=== PATIENT | male | born 1930 | race Two or more races ===

== ENCOUNTER → 2017-12-17 | Outpatient (CLI) | payer MEDICARE, MEDICAID | END | disposition home or self-care (01) | LOC: Rad HDHVI 14:53 | PROVIDERS: ATTEND Internal Medicine | DX: I35.8 Other nonrheumatic aortic valve disorders (principal); I35.1 Nonrheumatic aortic (valve) insufficiency; R00.2 Palpitations; R01.1 Cardiac murmur, unspecified | CPT/HCPCS: 93306 ==

== ENCOUNTER → 2017-12-19 | Outpatient (CLI) | payer MEDICARE, MEDICAID ==
[~2017-12-19] VITALS: Ht 154.9 cm; Wt 56.7 kg
[~2017-12-19] MED LIST: ADENOSINE 48 MG in GIVE UN-DILUTED 0 ML IV ONE; ADENOSINE 90 MG/30 ML INJ IV ONE; ASPI81TA27 PO; DOXA4TAB40 PO; METF-370 PO; METO25TA62 PO; PANT40TA2 PO
== END | disposition home or self-care (01) ==
LOC: Rad HDHVI 08:20
PROVIDERS: ATTEND Internal Medicine
DX: I10 Essential (primary) hypertension (principal); E11.9 Type 2 diabetes mellitus without complications; I35.0 Nonrheumatic aortic (valve) stenosis; R06.09 Other forms of dyspnea
CPT/HCPCS: 78452; 93005; 96374; 96375; A9500; J0153

== ENCOUNTER → 2017-12-22 | Outpatient (CLI) | payer MEDICARE, MEDICAID ==
[~2017-12-22] MED LIST changes: -ADENOSINE 48 MG in GIVE UN-DILUTED 0 ML IV ONE; -ADENOSINE 90 MG/30 ML INJ IV ONE
[2017-12-22 08:39] LABS: Urine Bacteria NONE SEEN /hpf (None Seen); Urine Blood Negative /uL (Negative); Urine Specific Gravity 1.013 (1.001-1.035); Urine WBC 2 /hpf (0 - 3)
[2017-12-22 08:43] LABS: Basophils # (auto) 0.2 uL; Eosinophils # (auto) 0.2 uL; Neutrophils # (auto) 1.8 uL
[2017-12-22 08:45] LABS: Basophils % (auto) 3.7 % (0.0-2.0); Hematocrit 40.5 % (41.0-53.0); Hemoglobin 13.6 g/dL (13.5-17.5); Lymphocytes # (auto) 2.5 uL; Lymphocytes % (auto) 48.9 % (10.0-50.0); Mean Corpuscular Hemoglobin 34.7 pg (28.0-32.0); Mean Corpuscular Hgb Conc. 33.4 g/dL (32.0-36.0); Mean Corpuscular Volume 103.8 fL (80.0-100.0); Monocytes # (auto) 0.5 uL; Monocytes % (auto) 9.6 % (0.0-12.0); Neutrophils % (auto) 34.8 % (37.0-80.0); Nucleated Red Blood Cells % 0.1 %; Platelet Count (auto) 140 10^3/uL (140-450); Red Blood Cells 3.91 10^6/uL (4.5-5.90); Red Cell Distribution Width 17.3 % (11.8-14.3); White Blood Cell 5.2 10^3/uL (4.4-10.8)
[2017-12-22 09:12] LABS: Albumin 3.3 g/dL (3.4-5.0); BUN/Creatinine Ratio 10.9; Bilirubin, Total 0.4 mg/dL (0.2-1.0); Calcium 8.8 mg/dL (8.5-10.1); Potassium 4.4 mmol/L (3.5-5.1); Total Protein 7.5 g/dL (6.4-8.2)
== END | disposition home or self-care (01) ==
LOC: LAB 07:08
PROVIDERS: ATTEND Nurse Practitioner
DX: E11.8 Type 2 diabetes mellitus with unspecified complications (principal); K21.9 Gastro-esophageal reflux disease without esophagitis; E55.9 Vitamin D deficiency, unspecified; R97.20 Elevated prostate specific antigen [PSA]
CPT/HCPCS: 36415; 80053; 80061; 81001; 82043; 82306; 83036; 84153; 84443; 85025

== ENCOUNTER 2018-01-07 19:40 | Emergency (ER) | payer MEDICARE, MEDICAID ==
[~2018-01-07] VITALS: Ht 162.6 cm; Wt 56.7 kg
[2018-01-07 20:02] VITALS: BP 152/64
[2018-01-07] MEDS ORDERED: TETANUS-DIPTH-ACEL PERTUSSIS 0.5ML SYRG IM ONE (23:00)
== END 2018-01-07 23:41 | disposition home or self-care (01) ==
LOC: ER 19:40
DX: S61.451A Open bite of right hand, initial encounter (principal); E11.9 Type 2 diabetes mellitus without complications; I10 Essential (primary) hypertension; Z79.84 Long term (current) use of oral hypoglycemic drugs; Z79.899 Other long term (current) drug therapy; Z79.82 Long term (current) use of aspirin; W54.0XXA Bitten by dog, initial encounter; Y93.89 Activity, other specified; Y99.8 Other external cause status; Y92.89 Other specified places as the place of occurrence of the external cause
CPT/HCPCS: 82962; 90471; 90715

== ENCOUNTER 2018-01-12 08:06 | Day surgery (SDC) | payer MEDICARE, MEDICAID ==
[2018-01-06 13:48] LABS: Basophils # (auto) 0.1 uL; Eosinophils # (auto) 0.2 uL; Hematocrit 40.1 % (41.0-53.0); Lymphocytes # (auto) 1.7 uL; Neutrophils # (auto) 2.2 uL; Neutrophils % (auto) 46.2 % (37.0-80.0); White Blood Cell 4.7 10^3/uL (4.4-10.8)
[2018-01-06 13:49] LABS: Basophils % (auto) 2.8 % (0.0-2.0); Eosinophils % (auto) 4.7 % (0.0-7.0); Hemoglobin 13.3 g/dL (13.5-17.5); Lymphocytes % (auto) 36.9 % (10.0-50.0); Mean Corpuscular Hemoglobin 35.2 pg (28.0-32.0); Mean Corpuscular Hgb Conc. 33.3 g/dL (32.0-36.0); Mean Corpuscular Volume 105.8 fL (80.0-100.0); Monocytes # (auto) 0.4 uL; Monocytes % (auto) 9.4 % (0.0-12.0); Nucleated Red Blood Cells % 0.4 %; Platelet Count (auto) 142 10^3/uL (140-450); Red Blood Cells 3.79 10^6/uL (4.5-5.90); Red Cell Distribution Width 16.1 % (11.8-14.3)
[2018-01-06 14:01] LABS: Partial Thromboplastin Time 30.3 sec (23.78-33.04); Prothrombin Time 10.7 sec (9.27-12.13)
[~2018-01-12] VITALS: Ht 165.1 cm; Wt 56.7 kg
[2018-01-12] MEDS ORDERED: SODIUM CHLORIDE LOCK 10 ML ONE (08:22)
[2018-01-12] MEDS ORDERED: fentaNYL CITRATE 100 MCG/2 ML VL ONE (08:22)
[2018-01-12] MEDS ORDERED: diphenhdrAMINE HCL 50 MG/1 ML VL ONE (08:22)
[2018-01-12] MEDS ORDERED: LIDOCAINE VISCOUS 2% 15ML UD ONE (08:22)
[2018-01-12] MEDS ORDERED: MIDAZOLAM HCL 5 MG/ML-1ML VIAL ONE (08:22)
[2018-01-12 10:20] VITALS: BP 150/64
== END 2018-01-12 10:30 | disposition home or self-care (01) ==
LOC: GI 08:06
PROVIDERS: ATTEND Internal Medicine Gastroenterology
DX: K22.2 Esophageal obstruction (principal); K44.9 Diaphragmatic hernia without obstruction or gangrene; K20.9 Esophagitis, unspecified; E11.9 Type 2 diabetes mellitus without complications; Z90.49 Acquired absence of other specified parts of digestive tract; Z79.82 Long term (current) use of aspirin; Z79.84 Long term (current) use of oral hypoglycemic drugs; Z79.899 Other long term (current) drug therapy
CPT/HCPCS: 36415; 43249; 82962; 85025; 85610; 85730; A6257; J2250; J3010; J7030; 43213

== ENCOUNTER → 2018-05-05 | Outpatient (CLI) | payer MEDICARE, MEDICAID ==
[2018-05-05 08:13] LABS: Basophils # (auto) 0.2 uL; Eosinophils # (auto) 0.2 uL
[2018-05-05 08:14] LABS: Basophils % (auto) 2.9 % (0.0-2.0); Eosinophils % (auto) 3.5 % (0.0-7.0); Hematocrit 37.2 % (41.0-53.0); Hemoglobin 12.9 g/dL (13.5-17.5); Lymphocytes # (auto) 2.7 uL; Lymphocytes % (auto) 48.7 % (10.0-50.0); Mean Corpuscular Hemoglobin 36.9 pg (28.0-32.0); Mean Corpuscular Hgb Conc. 34.8 g/dL (32.0-36.0); Mean Corpuscular Volume 105.9 fL (80.0-100.0); Monocytes # (auto) 0.4 uL; Monocytes % (auto) 7.4 % (0.0-12.0); Neutrophils % (auto) 37.5 % (37.0-80.0); Nucleated Red Blood Cells % 0.1 %; Platelet Count (auto) 164 10^3/uL (140-450); Red Blood Cells 3.51 10^6/uL (4.5-5.90); Red Cell Distribution Width 15.1 % (11.8-14.3); White Blood Cell 5.5 10^3/uL (4.4-10.8)
[2018-05-05 08:36] LABS: Chloride 105 mmol/L (98-107); Potassium 4.4 mmol/L (3.5-5.1); Sodium 139 mmol/L (136-145)
[2018-05-05 08:46] LABS: Alanine Aminotransferase 34 U/L (16-61); Albumin 3.3 g/dL (3.4-5.0); Alkaline Phosphatase 73 U/L (45-117); Anion Gap 5 (5-15); Aspartate Aminotransferase 34 U/L (15-37); BUN/Creatinine Ratio 12.8; Bilirubin, Total 0.4 mg/dL (0.2-1.0); Blood Urea Nitrogen 15 mg/dL (7-18); Calcium 8.8 mg/dL (8.5-10.1); Carbon Dioxide 29 mmol/L (21-32); Cholesterol 153 mg/dL (< 200); GFR African American > 60 mL/min; GFR Non-African American > 60 mL/min; Glucose 93 mg/dL (74-106); HDL Cholesterol 48 mg/dL (40-59); LDL Cholesterol 97 mg/dL (< 100); Total Protein 7.3 g/dL (6.4-8.2); Triglycerides 116 mg/dL (< 150)
== END | disposition home or self-care (01) ==
LOC: LAB 07:47
PROVIDERS: ATTEND Nurse Practitioner
DX: E11.8 Type 2 diabetes mellitus with unspecified complications (principal); I10 Essential (primary) hypertension; Z79.84 Long term (current) use of oral hypoglycemic drugs
CPT/HCPCS: 36415; 80053; 80061; 83036; 84443; 85025

== ENCOUNTER → 2018-05-14 | Outpatient (CLI) | payer MEDICARE, MEDICAID ==
[2018-05-14 12:14] LABS: Basophils # (auto) 0.1 uL; Eosinophils # (auto) 0.2 uL; Lymphocytes # (auto) 1.8 uL; Monocytes # (auto) 0.4 uL
[2018-05-14 12:17] LABS: Basophils % (auto) 1.7 % (0.0-2.0); Eosinophils % (auto) 4.4 % (0.0-7.0); Hematocrit 36.8 % (41.0-53.0); Hemoglobin 12.7 g/dL (13.5-17.5); Lymphocytes % (auto) 36.3 % (10.0-50.0); Mean Corpuscular Hemoglobin 37.8 pg (28.0-32.0); Mean Corpuscular Hgb Conc. 34.6 g/dL (32.0-36.0); Mean Corpuscular Volume 109.2 fL (80.0-100.0); Monocytes % (auto) 7.9 % (0.0-12.0); Neutrophils # (auto) 2.4 uL; Neutrophils % (auto) 49.7 % (37.0-80.0); Nucleated Red Blood Cells % 0.5 %; Platelet Count (auto) 130 10^3/uL (140-450); Red Blood Cells 3.37 10^6/uL (4.5-5.90); Red Cell Distribution Width 14.9 % (11.8-14.3); White Blood Cell 4.9 10^3/uL (4.4-10.8)
[2018-05-14 12:20] LABS: Urine Blood Negative /uL (Negative); Urine Specific Gravity 1.016 (1.001-1.035)
[2018-05-14 12:28] LABS: Albumin 3.3 g/dL (3.4-5.0); Calcium 8.7 mg/dL (8.5-10.1); Potassium 4.6 mmol/L (3.5-5.1)
[2018-05-14 12:33] LABS: BUN/Creatinine Ratio 12.3; Bilirubin, Total 0.5 mg/dL (0.2-1.0); Total Protein 7.3 g/dL (6.4-8.2)
[2018-05-14 12:36] LABS: Free T4 (Free Thyroxine) 0.72 ng/dL (0.89-1.76)
[2018-05-14 12:37] LABS: Prostate Specific Antigen 0.83 ng/mL (0.0-4.0)
== END | disposition home or self-care (01) ==
LOC: LAB 07:52
PROVIDERS: ATTEND Internal Medicine
DX: E55.9 Vitamin D deficiency, unspecified (principal); E03.9 Hypothyroidism, unspecified; C61 Malignant neoplasm of prostate; E29.1 Testicular hypofunction; E11.9 Type 2 diabetes mellitus without complications; D51.9 Vitamin B12 deficiency anemia, unspecified; N39.0 Urinary tract infection, site not specified
CPT/HCPCS: 36415; 80053; 80061; 81003; 82306; 82607; 83036; 84153; 84403; 84439; 84443; 85025; 87086

== ENCOUNTER → 2018-08-26 | Outpatient (CLI) | payer MEDICARE, MEDICAID ==
[2018-08-26 08:44] LABS: Basophils # (auto) 0.1 uL; Eosinophils # (auto) 0.2 uL; Lymphocytes # (auto) 1.9 uL; Monocytes # (auto) 0.6 uL; Red Cell Distribution Width 14.7 % (11.8-14.3)
[2018-08-26 08:46] LABS: Basophils % (auto) 1.7 % (0.0-2.0); Eosinophils % (auto) 2.4 % (0.0-7.0); Hematocrit 41.9 % (41.0-53.0); Hemoglobin 14.2 g/dL (13.5-17.5); Lymphocytes % (auto) 28.4 % (10.0-50.0); Mean Corpuscular Volume 105.9 fL (80.0-100.0); Neutrophils % (auto) 58.5 % (37.0-80.0); Platelet Count (auto) 144 10^3/uL (140-450); Red Blood Cells 3.96 10^6/uL (4.5-5.90); White Blood Cell 6.8 10^3/uL (4.4-10.8)
[2018-08-26 08:50] LABS: Urine Bacteria NONE SEEN /hpf (None Seen); Urine Blood Negative /uL (Negative); Urine Specific Gravity 1.014 (1.001-1.035); Urine WBC 2 /hpf (0 - 3)
[2018-08-26 09:03] LABS: Albumin 3.5 g/dL (3.4-5.0); Calcium 9.2 mg/dL (8.5-10.1); Potassium 4.6 mmol/L (3.5-5.1)
[2018-08-26 09:07] LABS: BUN/Creatinine Ratio 12.5; Bilirubin, Total 0.6 mg/dL (0.2-1.0); Total Protein 7.6 g/dL (6.4-8.2)
[2018-08-26 09:16] LABS: Folate (Folic Acid) 22.64 ng/mL (5.38-24)
== END | disposition home or self-care (01) ==
LOC: LAB 07:54
PROVIDERS: ATTEND Nurse Practitioner
DX: E78.5 Hyperlipidemia, unspecified (principal); E53.8 Deficiency of other specified B group vitamins
CPT/HCPCS: 36415; 80053; 80061; 81001; 82607; 82746; 84443; 85025

== ENCOUNTER → 2018-09-02 | Outpatient (CLI) | payer MEDICARE, MEDICAID | END | disposition home or self-care (01) | LOC: LAB 07:58 | PROVIDERS: ATTEND Internal Medicine | DX: E03.9 Hypothyroidism, unspecified (principal) | CPT/HCPCS: 36415; 84443 ==

== ENCOUNTER → 2018-10-08 | Outpatient (CLI) | payer MEDICARE, MEDICAID | END | disposition home or self-care (01) | LOC: LAB 07:11 | PROVIDERS: ATTEND Nurse Practitioner | DX: E03.9 Hypothyroidism, unspecified (principal) | CPT/HCPCS: 36415; 84443 ==

== ENCOUNTER → 2019-02-08 | Outpatient (CLI) | payer MEDICARE, MEDICAID ==
[~2019-02-08] MED LIST changes: +ASPI-404 PO; -ASPI81TA27 PO; -DOXA4TAB40 PO; +DOXA4TAB5 PO
[2019-02-08 09:10] LABS: Hematocrit 42.4 % (41.0-53.0); Hemoglobin 14.3 g/dL (13.5-17.5); Lymphocytes # (auto) 2.2 uL; Monocytes # (auto) 0.4 uL; Neutrophils # (auto) 1.9 uL
[2019-02-08 09:12] LABS: Basophils # (auto) 0.2 uL; Basophils % (auto) 4.3 % (0.0-2.0); Eosinophils # (auto) 0.3 uL; Eosinophils % (auto) 5.6 % (0.0-7.0); Lymphocytes % (auto) 44.1 % (10.0-50.0); Mean Corpuscular Hemoglobin 36.1 pg (28.0-32.0); Mean Corpuscular Hgb Conc. 33.8 g/dL (32.0-36.0); Nucleated Red Blood Cells % 0.3 %; Platelet Count (auto) 129 10^3/uL (140-450); Red Blood Cells 3.96 10^6/uL (4.5-5.90); Red Cell Distribution Width 15.2 % (11.8-14.3)
[2019-02-08 09:17] LABS: Urine Bacteria NONE SEEN /hpf (None Seen); Urine Blood Negative /uL (Negative); Urine Specific Gravity 1.016 (1.001-1.035); Urine WBC 12 /hpf (0 - 3)
[2019-02-08 09:24] LABS: Albumin 3.6 g/dL (3.4-5.0); Calcium 8.9 mg/dL (8.5-10.1); Potassium 4.4 mmol/L (3.5-5.1)
[2019-02-08 09:30] LABS: BUN/Creatinine Ratio 14.3; Bilirubin, Total 0.6 mg/dL (0.2-1.0); Total Protein 7.6 g/dL (6.4-8.2)
== END | disposition home or self-care (01) ==
LOC: LAB 07:55
PROVIDERS: ATTEND Nurse Practitioner
DX: E78.5 Hyperlipidemia, unspecified (principal); E03.9 Hypothyroidism, unspecified
CPT/HCPCS: 36415; 80053; 80061; 81001; 84443; 85025

== ENCOUNTER → 2020-03-17 | Outpatient (CLI) | payer MEDICARE, MEDICAID ==
[~2020-03-17] MED LIST changes: -ASPI-404 PO; +ASPI-543 PO; -METO25TA62 PO; +METO25TA93 PO
[2020-03-17 08:07] LABS: Basophils # (auto) 0.2 10 ^3/uL (0-0.2); Eosinophils # (auto) 0.3 10 ^3/uL (0-0.8); Hemoglobin 14.6 g/dL (13.5-17.5)
[2020-03-17 08:09] LABS: Basophils % (auto) 4.7 % (0.0-2.0); Eosinophils % (auto) 6.5 % (0.0-7.0); Hematocrit 43.8 % (41.0-53.0); Lymphocytes # (auto) 1.6 10 ^3/uL (0.4-5.4); Lymphocytes % (auto) 35.3 % (10.0-50.0); Mean Corpuscular Hemoglobin 35.2 pg (28.0-32.0); Mean Corpuscular Hgb Conc. 33.4 g/dL (32.0-36.0); Mean Corpuscular Volume 105.4 fL (80.0-100.0); Monocytes # (auto) 0.4 10 ^3/uL (0-1.3); Monocytes % (auto) 9.8 % (0.0-12.0); Neutrophils % (auto) 43.7 % (37.0-80.0); Nucleated Red Blood Cells % 0.5 %; Platelet Count (auto) 60 10^3/uL (140-450); Red Blood Cells 4.16 10^6/uL (4.5-5.90); Red Cell Distribution Width 15.2 % (11.8-14.3); White Blood Cell 4.5 10^3/uL (4.4-10.8)
[2020-03-17 08:33] LABS: Potassium 4.1 mmol/L (3.5-5.1)
[2020-03-17 08:49] LABS: Albumin 3.4 g/dL (3.4-5.0); BUN/Creatinine Ratio 15.2; Bilirubin, Total 0.7 mg/dL (0.2-1.0); Total Protein 7.7 g/dL (6.4-8.2)
== END | disposition home or self-care (01) ==
LOC: LAB 07:27
PROVIDERS: ATTEND Student in an Organized Health Care Education/Training Program
DX: E11.9 Type 2 diabetes mellitus without complications (principal); I10 Essential (primary) hypertension; E03.9 Hypothyroidism, unspecified
CPT/HCPCS: 36415; 80053; 80061; 82043; 83036; 84443; 85025

== ENCOUNTER → 2020-06-14 | Outpatient (CLI) | payer MEDICARE, MEDICAID | END | disposition home or self-care (01) | LOC: LAB 10:29 | PROVIDERS: ATTEND Internal Medicine Pulmonary Disease | DX: Z01.812 Encounter for preprocedural laboratory examination (principal); Z20.822 Contact with and (suspected) exposure to COVID-19; J84.9 Interstitial pulmonary disease, unspecified | CPT/HCPCS: 36415; 87426 ==

== ENCOUNTER → 2020-06-15 | Outpatient (CLI) | payer MEDICARE, MEDICAID ==
[~2020-06-15] MED LIST changes: +ALBUTEROL SULF 2.5 MG/0.5ML(0.5%) NEB SOLN ONE
== END | disposition home or self-care (01) ==
LOC: RT 08:32
PROVIDERS: ATTEND Internal Medicine Pulmonary Disease
DX: J84.9 Interstitial pulmonary disease, unspecified (principal); J98.4 Other disorders of lung
CPT/HCPCS: 94060; 94618; 94727; 94729

== ENCOUNTER 2021-06-11 09:09 | Inpatient (IN) | payer MEDICARE, MEDICAID ==
[~2021-06-11] VITALS: Ht 157.5 cm; Wt 53.3 kg
[~2021-06-11 09:09] MED LIST changes: -ALBUTEROL SULF 2.5 MG/0.5ML(0.5%) NEB SOLN ONE; -DOXA4TAB5 PO; +DOXA4TAB6 PO
[2021-06-11 10:00] LABS: Monocytes # (auto) 0.3 10 ^3/uL (0-1.3); Red Blood Cells 3.76 10^6/uL (4.5-5.90); Red Cell Distribution Width 15.1 % (11.8-14.3)
[2021-06-11 10:02] LABS: Basophils # (auto) 0.2 10 ^3/uL (0-0.2); Eosinophils # (auto) 0.1 10 ^3/uL (0-0.8); Eosinophils % (auto) 3.5 % (0.0-7.0); Hematocrit 40.6 % (41.0-53.0); Hemoglobin 14.1 g/dL (13.5-17.5); Lymphocytes # (auto) 0.5 10 ^3/uL (0.4-5.4); Lymphocytes % (auto) 11.5 % (10.0-50.0); Mean Corpuscular Hemoglobin 37.4 pg (28.0-32.0); Mean Corpuscular Hgb Conc. 34.6 g/dL (32.0-36.0); Monocytes % (auto) 8.1 % (0.0-12.0); Neutrophils # (auto) 3.1 10 ^3/uL (1.6-8.6); Neutrophils % (auto) 72.9 % (37.0-80.0); Nucleated Red Blood Cells % 0.7 %; White Blood Cell 4.2 10^3/uL (4.4-10.8)
[2021-06-11 10:20] LABS: Albumin 3.1 g/dL (3.4-5.0); Calcium 9.2 mg/dL (8.5-10.1); Potassium 4.8 mmol/L (3.5-5.1)
[2021-06-11 10:25] LABS: Total Protein 7.6 g/dL (6.4-8.2)
[2021-06-11] MEDS ORDERED: FUROSEMIDE 40 MG/4 ML VIAL IV ONE (11:00)
[2021-06-11] MEDS ORDERED: NITROGLYCERIN 0.4 MG SL TAB SL PRN (13:30)
[2021-06-11] MEDS ORDERED: MORPHINE SULFATE INJECTION 2 MG/ML SYRG IV PRN ×2 (13:30→19:45)
[2021-06-11 15:30] VITALS: BP 134/58
[2021-06-11 16:38] LABS: Urine Bacteria FEW /hpf (None Seen); Urine Blood TRACE /uL (Negative); Urine Hyaline Cast FEW /lpf (0 - 2); Urine Specific Gravity 1.009 (1.001-1.035); Urine WBC 2 /hpf (0 - 3)
[2021-06-11 17:15] VITALS: BP 136/82
[2021-06-11] MEDS ORDERED: PANT40TA2 PO (17:30)
[2021-06-11] MEDS ORDERED: LEVO75TA6 PO (17:30)
[2021-06-11] MEDS ORDERED: ALBUAER3 IN (17:42)
[2021-06-11] MEDS ORDERED: levoFLOXacin 500MG 100 ML IV ONE (19:45)
[2021-06-11] MEDS ORDERED: BENAZEPRIL HCL 10 MG TAB PO ONE (19:45)
[2021-06-11] MEDS ORDERED: MONTELUKAST SODIUM 10 MG TAB PO ONE (19:45)
[2021-06-11] MEDS ORDERED: IPRATROPIUM BROM 0.5 MG/2.5ML INH SOL NEB ONE (19:45)
[2021-06-11] MEDS ORDERED: HYDROcodone-ACET 5/325MG TAB PO PRN (19:45)
[2021-06-11] MEDS ORDERED: PANTOPRAZOLE 40 MG/10 ML VIAL INJ IV ONE (19:45)
[2021-06-11] MEDS ORDERED: DOCUSATE SOD 100 MG CAP PO PRN (19:45)
[2021-06-11] MEDS ORDERED: METOPROLOL SUCCINATE XL 50 MG TAB PO ONE (19:45)
[2021-06-11] MEDS ORDERED: LACTULOSE 20Gm/30ML SOLN PO PRN (19:45)
[2021-06-11] MEDS ORDERED: HYDROcodone-ACET 5/325MG TAB PO ONE (19:45)
[2021-06-11] MEDS ORDERED: LORazepam 0.5 MG TAB PO PRN (19:45)
[2021-06-11] MEDS ORDERED: hydrALAZINE HCL 20 MG/ML VL IV PRN (19:45)
[2021-06-11] MEDS ORDERED: ALBUTEROL SULF 2.5 MG/0.5ML(0.5%) NEB SOLN NEB ONE (19:45)
[2021-06-11] MEDS ORDERED: ONDANSETRON HCL 4 MG/2 ML VIAL IV PRN (19:45)
[2021-06-11] MEDS ORDERED: BUDESONIDE (INHALATION) 0.5 MG/2 ML NEB NEB ONE (19:45)
[2021-06-11] MEDS ORDERED: MULTIPLE VITAMINS W/ MINERALS TAB PO ONE (19:45)
[2021-06-11] MEDS: ACETYLCYSTEINE 10 %(100MG/ML) SOL 4ML NEB SCH (20:25)
[2021-06-11 21:22] VITALS: BP 136/82
[2021-06-11 21:51] LABS: Magnesium 2.2 mg/dL (1.6-2.6); Phosphorus 2.9 mg/dL (2.5-4.90)
[2021-06-11 22:00] VITALS: BP 144/79
[2021-06-11] MEDS: SODIUM CHLORIDE 0.9% 1,000 ML IV SCH (22:01)
[2021-06-11] MEDS: methylPREDNISolone SOD SUCC 40 MG/ML VL IV SCH (22:34)
[2021-06-11] MEDS: MONTELUKAST SODIUM 10 MG TAB PO SCH (22:34)
[2021-06-11] MEDS: ATORVASTATIN 20 MG TAB PO SCH (22:34)
[2021-06-11] MEDS: ALBUTEROL SULF 2.5 MG/0.5ML(0.5%) NEB SOLN NEB PRN (22:56)
[2021-06-11] MEDS: IPRATROPIUM BROM 0.5 MG/2.5ML INH SOL NEB SCH (22:56)
[2021-06-12] MEDS: IPRATROPIUM BROM 0.5 MG/2.5ML INH SOL NEB SCH ×7 (02:00→22:17)
[2021-06-12] MEDS: ALBUTEROL SULF 2.5 MG/0.5ML(0.5%) NEB SOLN NEB PRN ×5 (02:36→18:18)
[2021-06-12 05:00] VITALS: BP 104/50
[2021-06-12] MEDS: BUDESONIDE (INHALATION) 0.5 MG/2 ML NEB NEB SCH ×2 (06:09→18:18)
[2021-06-12] MEDS: ACETYLCYSTEINE 10 %(100MG/ML) SOL 4ML NEB SCH ×4 (06:10→18:17)
[2021-06-12] MEDS: FUROSEMIDE 20 MG/2 ML VIAL IV SCH ×2 (06:28→18:03)
[2021-06-12] MEDS: methylPREDNISolone SOD SUCC 40 MG/ML VL IV SCH ×3 (06:28→22:02)
[2021-06-12] MEDS: LEVOTHYROXINE SODIUM 25 MCG TAB PO SCH (06:47)
[2021-06-12 06:49] LABS: Albumin 2.7 g/dL (3.4-5.0); BUN/Creatinine Ratio 23.7; Calcium 8.7 mg/dL (8.5-10.1); Magnesium 2.3 mg/dL (1.6-2.6); Phosphorus 3.7 mg/dL (2.5-4.90); Potassium 4.8 mmol/L (3.5-5.1)
[2021-06-12 06:58] LABS: INR 1.19 (0.9-1.15); Partial Thromboplastin Time 33.4 sec (23.6-33.0)
[2021-06-12 06:59] LABS: Bilirubin, Total 0.8 mg/dL (0.2-1.0); Total Protein 7.1 g/dL (6.4-8.2)
[2021-06-12 07:05] LABS: White Blood Cell 3.7 10^3/uL (4.4-10.8)
[2021-06-12 07:10] LABS: Hemoglobin 13.5 g/dL (13.5-17.5); Mean Corpuscular Hemoglobin 38.1 pg (28.0-32.0); Mean Corpuscular Hgb Conc. 34.7 g/dL (32.0-36.0); Mean Corpuscular Volume 109.8 fL (80.0-100.0); Red Blood Cells 3.55 10^6/uL (4.5-5.90)
[2021-06-12 07:23] LABS: Basophils % (manual) 0 (0.0-2.0); Blast Cells 0; Eosinophils % (manual) 0 (0-7); Metamyelocytes % 0; Myelocytes % 0; Promyelocytes % 0
[2021-06-12 08:45] VITALS: BP 142/68
[2021-06-12 09:17] LABS: Band Neutrophils % (manual) 2; Lymphocytes % (manual) 8 (10.0-50.0); Monocytes % (manual) 1 (0-12); Reactive Lymphocytes 1
[2021-06-12] MEDS: levoFLOXacin 250MG 50 ML IV SCH (09:43)
[2021-06-12] MEDS: PANTOPRAZOLE 40 MG/10 ML VIAL INJ IV SCH (09:43)
[2021-06-12] MEDS: BENAZEPRIL HCL 10 MG TAB PO SCH (09:43)
[2021-06-12] MEDS: MULTIPLE VITAMINS W/ MINERALS TAB PO SCH (09:43)
[2021-06-12] MEDS ORDERED: ENOXAPARIN SOD 40 MG/0.4 ML SYRINGE SC SCH (10:00)
[2021-06-12] MEDS ORDERED: METOPROLOL SUCCINATE XL 50 MG TAB PO SCH (10:00)
[2021-06-12 12:00] VITALS: BP 135/65
[2021-06-12] MEDS ORDERED: IOHEXOL 350 MG/ML 100ML IJ ONE (12:14)
[2021-06-12] MEDS: SODIUM CHLORIDE 0.9% 1,000 ML IV SCH (12:25)
[2021-06-12 21:42] VITALS: BP 131/71
[2021-06-12] MEDS: MONTELUKAST SODIUM 10 MG TAB PO SCH (22:02)
[2021-06-12] MEDS: ATORVASTATIN 20 MG TAB PO SCH (22:02)
[2021-06-12] MEDS: METOPROLOL TARTRATE 25 MG TAB PO SCH (22:02)
[2021-06-13] MEDS: IPRATROPIUM BROM 0.5 MG/2.5ML INH SOL NEB SCH ×6 (02:03→22:23)
[2021-06-13 05:00] VITALS: BP 125/56
[2021-06-13] MEDS: SODIUM CHLORIDE 0.9% 1,000 ML IV SCH ×2 (05:05→21:45)
[2021-06-13 06:05] LABS: Cholesterol 147 mg/dL (< 200); HDL Cholesterol 58 mg/dL (40-59); Triglycerides 47 mg/dL (< 150)
[2021-06-13] MEDS: methylPREDNISolone SOD SUCC 40 MG/ML VL IV SCH ×3 (06:09→22:05)
[2021-06-13] MEDS: FUROSEMIDE 20 MG/2 ML VIAL IV SCH ×2 (06:09→17:49)
[2021-06-13] MEDS: ALBUTEROL SULF 2.5 MG/0.5ML(0.5%) NEB SOLN NEB PRN ×3 (06:31→22:23)
[2021-06-13] MEDS: ACETYLCYSTEINE 10 %(100MG/ML) SOL 4ML NEB SCH ×2 (06:31→19:29)
[2021-06-13] MEDS: BUDESONIDE (INHALATION) 0.5 MG/2 ML NEB NEB SCH ×2 (06:31→22:23)
[2021-06-13] MEDS: LEVOTHYROXINE SODIUM 25 MCG TAB PO SCH (06:45)
[2021-06-13 08:40] LABS: Alcohol, Urine < 3.0 mg/dL (0-10); Amphetamine Screen, Urine NEGATIVE (NEGATIVE); Barbiturate Scree,Urine NEGATIVE (NEGATIVE); Benzodiazephine Screen, Urine NEGATIVE (NEGATIVE); Cannabinoid Screen, Urine NEGATIVE (NEGATIVE); Cocaine Screen, Urine NEGATIVE (NEGATIVE); Opiate Scree,Urine NEGATIVE (NEGATIVE); Phencyclidine Screen, Urine NEGATIVE (NEGATIVE)
[2021-06-13 09:00] VITALS: BP 119/62
[2021-06-13] MEDS: PANTOPRAZOLE 40 MG/10 ML VIAL INJ IV SCH (09:09)
[2021-06-13] MEDS: MULTIPLE VITAMINS W/ MINERALS TAB PO SCH (09:09)
[2021-06-13] MEDS: BENAZEPRIL HCL 10 MG TAB PO SCH (09:09)
[2021-06-13] MEDS: METOPROLOL TARTRATE 25 MG TAB PO SCH ×2 (09:09→22:04)
[2021-06-13] MEDS: levoFLOXacin 250MG 50 ML IV SCH (09:10)
[2021-06-13] MEDS ORDERED: DICL1GEL50 TOP (09:49)
[2021-06-13] MEDS ORDERED: METO25TA5 PO (09:49)
[2021-06-13] MEDS ORDERED: ALBUAER3 IN (09:49)
[2021-06-13] MEDS ORDERED: LEVO75TA6 PO (09:49)
[2021-06-13] MEDS ORDERED: PANT40TA2 PO (09:49)
[2021-06-13 11:05] LABS: Red Cell Distribution Width 15.2 % (11.8-14.3)
[2021-06-13 11:07] LABS: Hematocrit 36.4 % (41.0-53.0); Hemoglobin 12.3 g/dL (13.5-17.5); Mean Corpuscular Hgb Conc. 33.9 g/dL (32.0-36.0); Mean Corpuscular Volume 109.4 fL (80.0-100.0); Red Blood Cells 3.32 10^6/uL (4.5-5.90); White Blood Cell 8.5 10^3/uL (4.4-10.8)
[2021-06-13 13:00] VITALS: BP 134/65
[2021-06-13 13:22] LABS: Basophils % (manual) 0 (0.0-2.0); Blast Cells 0; Eosinophils % (manual) 0 (0-7); Metamyelocytes % 0; Myelocytes % 0; Promyelocytes % 0; Reactive Lymphocytes 0
[2021-06-13 13:28] LABS: Band Neutrophils % (manual) 4; Lymphocytes % (manual) 6 (10.0-50.0); Monocytes % (manual) 6 (0-12)
[2021-06-13 17:00] VITALS: BP 143/72
[2021-06-13 22:00] VITALS: BP 118/61
[2021-06-13] MEDS: ATORVASTATIN 20 MG TAB PO SCH (22:03)
[2021-06-13] MEDS: MONTELUKAST SODIUM 10 MG TAB PO SCH (22:04)
[2021-06-14] MEDS: IPRATROPIUM BROM 0.5 MG/2.5ML INH SOL NEB SCH ×6 (01:47→22:30)
[2021-06-14] MEDS: ALBUTEROL SULF 2.5 MG/0.5ML(0.5%) NEB SOLN NEB PRN ×6 (01:48→22:30)
[2021-06-14 05:00] VITALS: BP 142/67
[2021-06-14] MEDS: FUROSEMIDE 20 MG/2 ML VIAL IV SCH ×2 (06:04→19:04)
[2021-06-14] MEDS: methylPREDNISolone SOD SUCC 40 MG/ML VL IV SCH ×3 (06:05→20:59)
[2021-06-14] MEDS: BUDESONIDE (INHALATION) 0.5 MG/2 ML NEB NEB SCH ×2 (06:40→19:24)
[2021-06-14 09:00] VITALS: BP 131/74
[2021-06-14] MEDS: PANTOPRAZOLE 40 MG/10 ML VIAL INJ IV SCH (10:51)
[2021-06-14] MEDS: METOPROLOL TARTRATE 25 MG TAB PO SCH ×2 (10:52→21:03)
[2021-06-14] MEDS: MULTIPLE VITAMINS W/ MINERALS TAB PO SCH (10:52)
[2021-06-14] MEDS: APIXABAN 5 MG TAB PO SCH ×2 (10:52→20:59)
[2021-06-14] MEDS: levoFLOXacin 250MG 50 ML IV SCH (10:56)
[2021-06-14] MEDS: BENAZEPRIL HCL 10 MG TAB PO SCH (12:17)
[2021-06-14 12:48] VITALS: BP 126/84
[2021-06-14] MEDS: SODIUM CHLORIDE 0.9% 1,000 ML IV SCH (15:03)
[2021-06-14 16:44] VITALS: BP 131/64
[2021-06-14] MEDS: ATORVASTATIN 20 MG TAB PO SCH (21:00)
[2021-06-14] MEDS: MONTELUKAST SODIUM 10 MG TAB PO SCH (21:01)
[2021-06-14 22:00] VITALS: BP 114/75
[2021-06-15] MEDS: IPRATROPIUM BROM 0.5 MG/2.5ML INH SOL NEB SCH ×4 (02:04→14:26)
[2021-06-15] MEDS: ALBUTEROL SULF 2.5 MG/0.5ML(0.5%) NEB SOLN NEB PRN (02:04)
[2021-06-15 02:55] VITALS: BP 114/75
[2021-06-15 05:00] VITALS: BP 111/55
[2021-06-15] MEDS: SODIUM CHLORIDE 0.9% 1,000 ML IV SCH (06:16)
[2021-06-15] MEDS: FUROSEMIDE 20 MG/2 ML VIAL IV SCH (06:18)
[2021-06-15] MEDS: methylPREDNISolone SOD SUCC 40 MG/ML VL IV SCH ×2 (06:18→14:00)
[2021-06-15] MEDS: BUDESONIDE (INHALATION) 0.5 MG/2 ML NEB NEB SCH (06:29)
[2021-06-15 08:39] LABS: LDL Cholesterol 88 mg/dL (< 100)
[2021-06-15 08:58] VITALS: BP 135/60
[2021-06-15] MEDS: PANTOPRAZOLE 40 MG/10 ML VIAL INJ IV SCH (09:13)
[2021-06-15] MEDS: levoFLOXacin 250MG 50 ML IV SCH (09:13)
[2021-06-15] MEDS: APIXABAN 5 MG TAB PO SCH (09:13)
[2021-06-15] MEDS: METOPROLOL TARTRATE 25 MG TAB PO SCH (09:14)
[2021-06-15] MEDS: BENAZEPRIL HCL 10 MG TAB PO SCH (09:15)
[2021-06-15] MEDS: MULTIPLE VITAMINS W/ MINERALS TAB PO SCH (09:15)
[2021-06-15] MEDS ORDERED: APIX5TAB PO (09:20)
[2021-06-15] MEDS ORDERED: LEVO500T31 PO (09:20)
[2021-06-15] MEDS ORDERED: PRED20TA2 PO (09:30)
[2021-06-15] MEDS ORDERED: FURO1TAB33 PO (09:31)
[2021-06-15 11:33] VITALS: BP 135/60
[2021-06-15 12:57] VITALS: BP 124/62
[2021-06-21] MEDS ORDERED: APIXABAN 5 MG TAB PO SCH (10:00)
== END 2021-06-15 16:16 | disposition home or self-care (01) | DRG 142 ==
LOC: EDBD 09:09 → ER 09:09 → TELE 13:22 → TELE-CENTR 15:00
PROVIDERS: ADMIT Hospitalist; ATTEND Family Medicine
DX: J84.9 Interstitial pulmonary disease, unspecified (principal); I26.99 Other pulmonary embolism without acute cor pulmonale; J96.21 Acute and chronic respiratory failure with hypoxia; I50.43 Acute on chronic combined systolic (congestive) and diastolic (congestive) heart failure; D69.6 Thrombocytopenia, unspecified; J44.0 Chronic obstructive pulmonary disease with (acute) lower respiratory infection; R64 Cachexia; I13.0 Hypertensive heart and chronic kidney disease with heart failure and stage 1 through stage 4 chronic kidney disease, or unspecified chronic kidney disease; J84.112 Idiopathic pulmonary fibrosis; I35.0 Nonrheumatic aortic (valve) stenosis; J44.1 Chronic obstructive pulmonary disease with (acute) exacerbation; N39.0 Urinary tract infection, site not specified; R62.7 Adult failure to thrive; E03.9 Hypothyroidism, unspecified; E05.80 Other thyrotoxicosis without thyrotoxic crisis or storm; E11.22 Type 2 diabetes mellitus with diabetic chronic kidney disease; E11.40 Type 2 diabetes mellitus with diabetic neuropathy, unspecified; E78.5 Hyperlipidemia, unspecified; N18.9 Chronic kidney disease, unspecified; Z20.822 Contact with and (suspected) exposure to COVID-19; R00.0 Tachycardia, unspecified; R79.89 Other specified abnormal findings of blood chemistry; R94.6 Abnormal results of thyroid function studies; Z99.81 Dependence on supplemental oxygen; Z79.899 Other long term (current) drug therapy
CPT/HCPCS: 36415; 71045; 71275; 80053; 80061; 80307; 81001; 82728; 83036; 83735; 83880; 84100; 84443; 84484; 85007; 85025; 85027; 85379; 85610; 85730; 87040; 87086; 87088; 87186; 87426; 93005; 93306; 93970; 94640; 96365; 96375; 99291; C9113; G0378; J1956

== ENCOUNTER 2021-06-17 05:49 | Inpatient (IN) | payer MEDICARE, MEDICAID ==
[~2021-06-17] VITALS: Ht 152.4 cm; Wt 52.2 kg
[~2021-06-17 05:49] MED LIST changes: +ALBUAER3 IN; +APIX5TAB PO; -ASPI-543 PO; +DICL1GEL50 TOP; -DOXA4TAB6 PO; +FURO1TAB33 PO; +LEVO500T31 PO; +LEVO75TA6 PO; -METF-370 PO; +METO25TA5 PO; -METO25TA93 PO; +PRED20TA2 PO
[2021-06-17 06:44] LABS: White Blood Cell 8.7 10^3/uL (4.4-10.8)
[2021-06-17 06:47] LABS: Hematocrit 41.7 % (41.0-53.0); Hemoglobin 14.4 g/dL (13.5-17.5); Mean Corpuscular Hemoglobin 37.4 pg (28.0-32.0); Mean Corpuscular Hgb Conc. 34.6 g/dL (32.0-36.0); Mean Corpuscular Volume 108.1 fL (80.0-100.0); Red Blood Cells 3.86 10^6/uL (4.5-5.90); Red Cell Distribution Width 14.7 % (11.8-14.3)
[2021-06-17 06:53] LABS: Basophils % (manual) 0 (0.0-2.0); Blast Cells 0; Metamyelocytes % 0; Myelocytes % 0; Promyelocytes % 0; Reactive Lymphocytes 0
[2021-06-17 06:58] LABS: INR 1.17 (0.9-1.15); Partial Thromboplastin Time 30.5 sec (23.6-33.0)
[2021-06-17 07:03] LABS: Chloride 101 mmol/L (98-107); Potassium 4.1 mmol/L (3.5-5.1); Sodium 136 mmol/L (136-145)
[2021-06-17 07:11] LABS: Alanine Aminotransferase 30 U/L (16-61); Albumin 2.9 g/dL (3.4-5.0); Alkaline Phosphatase 73 U/L (45-117); Anion Gap 2 (5-15); Aspartate Aminotransferase 33 U/L (15-37); BUN/Creatinine Ratio 44.7; Bilirubin, Total 1.1 mg/dL (0.2-1.0); Blood Alcohol < 3.0 mg/dL (0-5); Blood Urea Nitrogen 46 mg/dL (7-18); Calcium 8.6 mg/dL (8.5-10.1); Carbon Dioxide 33 mmol/L (21-32); GFR African American 88 mL/min; GFR Non-African American 72 mL/min; Glucose 102 mg/dL (74-106); Magnesium 2.9 mg/dL (1.6-2.6); Total Protein 6.6 g/dL (6.4-8.2)
[2021-06-17 08:44] LABS: Alcohol, Urine < 3.0 mg/dL (0-10); Amphetamine Screen, Urine NEGATIVE (NEGATIVE); Barbiturate Scree,Urine NEGATIVE (NEGATIVE); Benzodiazephine Screen, Urine NEGATIVE (NEGATIVE); Cannabinoid Screen, Urine NEGATIVE (NEGATIVE); Cocaine Screen, Urine NEGATIVE (NEGATIVE); Opiate Scree,Urine NEGATIVE (NEGATIVE); Phencyclidine Screen, Urine NEGATIVE (NEGATIVE)
[2021-06-17 09:23] LABS: Urine Bacteria NONE SEEN /hpf (None Seen); Urine Blood 1+ /uL (Negative); Urine Specific Gravity 1.018 (1.001-1.035); Urine WBC 1 /hpf (0 - 3)
[2021-06-17 12:34] LABS: Band Neutrophils % (manual) 1; Eosinophils % (manual) 6 (0-7); Lymphocytes % (manual) 15 (10.0-50.0); Monocytes % (manual) 6 (0-12)
[2021-06-17] MEDS ORDERED: NITROGLYCERIN 0.4 MG SL TAB SL PRN (13:30)
[2021-06-17] MEDS ORDERED: MORPHINE SULFATE INJECTION 2 MG/ML SYRG IV PRN (13:30)
[2021-06-17] MEDS ORDERED: HYDROcodone-ACET 5/325MG TAB PO PRN (14:15)
[2021-06-17] MEDS ORDERED: ONDANSETRON HCL 4 MG/2 ML VIAL IV PRN (14:15)
[2021-06-17] MEDS ORDERED: ENOXAPARIN SOD 60 MG/0.6 ML SYRINGE SC SCH (14:15)
[2021-06-17] MEDS ORDERED: METOPROLOL TARTRATE 1MG/1ML-5ML VIAL IV PRN (14:15)
[2021-06-17] MEDS ORDERED: MORPHINE SULFATE 4 MG/ML SYR/VIAL IV PRN (14:15)
[2021-06-17] MEDS ORDERED: ACETAMINOPHEN 325 MG TAB PO PRN (14:15)
[2021-06-17] MEDS: metroNIDAZOLE 500 MG TAB PO SCH ×2 (14:44→21:12)
[2021-06-17] MEDS ORDERED: ENOXAPARIN SOD 60 MG/0.6 ML SYRINGE SC ONE ×2 (15:00)
[2021-06-17 15:10] VITALS: BP 116/71
[2021-06-17] MEDS: CEFEPIME 2 GM in SODIUM CHL 0.9% 50 ML IV SCH (15:48)
[2021-06-17] MEDS ORDERED: IPRATROPIUM BROM 0.5 MG/2.5ML INH SOL NEB PRN (16:00)
[2021-06-17 16:32] VITALS: BP 116/71
[2021-06-17 16:58] VITALS: BP 131/70
[2021-06-17] MEDS: THIAMINE HCL 100 MG TAB PO SCH (18:12)
[2021-06-17] MEDS: ATORVASTATIN 20 MG TAB PO SCH (21:12)
[2021-06-17] MEDS: DOCUSATE SOD 100 MG CAP PO SCH (21:12)
[2021-06-17 22:00] VITALS: BP 105/66
[2021-06-18 01:20] VITALS: BP 105/66
[2021-06-18] MEDS: CEFEPIME 2 GM in SODIUM CHL 0.9% 50 ML IV SCH ×2 (02:57→16:41)
[2021-06-18 05:00] VITALS: BP 109/67
[2021-06-18 05:51] LABS: Basophils # (auto) 0 10 ^3/uL (0-0.2); Basophils % (auto) 0.1 % (0.0-2.0); Eosinophils # (auto) 0.5 10 ^3/uL (0-0.8); Hemoglobin 14.1 g/dL (13.5-17.5); Mean Corpuscular Volume 108.4 fL (80.0-100.0); Monocytes # (auto) 0.5 10 ^3/uL (0-1.3); Monocytes % (auto) 7.4 % (0.0-12.0)
[2021-06-18 05:53] LABS: Eosinophils % (auto) 6.6 % (0.0-7.0); Hematocrit 40.2 % (41.0-53.0); Lymphocytes # (auto) 0.8 10 ^3/uL (0.4-5.4); Lymphocytes % (auto) 11.6 % (10.0-50.0); Mean Corpuscular Hemoglobin 38.1 pg (28.0-32.0); Mean Corpuscular Hgb Conc. 35.1 g/dL (32.0-36.0); Neutrophils # (auto) 5.2 10 ^3/uL (1.6-8.6); Neutrophils % (auto) 74.3 % (37.0-80.0); Nucleated Red Blood Cells % 0.5 %; Red Blood Cells 3.71 10^6/uL (4.5-5.90); Red Cell Distribution Width 14.5 % (11.8-14.3)
[2021-06-18] MEDS: metroNIDAZOLE 500 MG TAB PO SCH ×3 (05:53→21:28)
[2021-06-18] MEDS: LEVOTHYROXINE SODIUM 25 MCG TAB PO SCH (05:53)
[2021-06-18 06:08] LABS: Albumin 2.8 g/dL (3.4-5.0); Calcium 8.6 mg/dL (8.5-10.1); Magnesium 2.8 mg/dL (1.6-2.6); Potassium 4.5 mmol/L (3.5-5.1)
[2021-06-18 06:10] LABS: BUN/Creatinine Ratio 33.3
[2021-06-18 06:18] LABS: Bilirubin, Total 1.2 mg/dL (0.2-1.0); Total Protein 6.1 g/dL (6.4-8.2)
[2021-06-18] MEDS ORDERED: OMNIPAQUE ORAL SOLN 500ml 12mg/ml PO ONE (08:16)
[2021-06-18 08:32] VITALS: BP 114/78
[2021-06-18] MEDS ORDERED: ASPirin 81 mg TAB PO SCH (10:00)
[2021-06-18 10:16] LABS: Folate (Folic Acid) 13.13 ng/mL (5.38-24)
[2021-06-18] MEDS: METOPROLOL TARTRATE 25 MG TAB PO SCH ×2 (10:43→11:43)
[2021-06-18] MEDS: DOCUSATE SOD 100 MG CAP PO SCH ×2 (10:43→21:27)
[2021-06-18] MEDS: PANTOPRAZOLE 40 MG TAB PO SCH (10:44)
[2021-06-18] MEDS: FUROSEMIDE 20 MG TAB PO SCH (10:44)
[2021-06-18] MEDS: predniSONE 20 MG TAB PO SCH (10:44)
[2021-06-18] MEDS: THIAMINE HCL 100 MG TAB PO SCH (10:44)
[2021-06-18] MEDS ORDERED: PRED20TA2 PO (10:58)
[2021-06-18] MEDS ORDERED: APIX5TAB PO (10:58)
[2021-06-18] MEDS ORDERED: LEVO-28 PO (10:58)
[2021-06-18] MEDS ORDERED: FURO20TA3 PO (10:58)
[2021-06-18] MEDS ORDERED: METO25TA5 PO (10:58)
[2021-06-18] MEDS ORDERED: LEVO75TA6 PO (10:58)
[2021-06-18 12:55] VITALS: BP 126/66
[2021-06-18 13:30] LABS: Hepatitis B Surface Antibody Negative (Negative)
[2021-06-18 15:10] LABS: Hepatitis C Antibody Negative (Negative)
[2021-06-18 16:31] VITALS: BP 133/85
[2021-06-18] MEDS: APIXABAN 5 MG TAB PO SCH ×2 (16:41→21:27)
[2021-06-18] MEDS: ATORVASTATIN 20 MG TAB PO SCH (21:27)
[2021-06-18 21:36] VITALS: BP 124/63
[2021-06-19] MEDS: CEFEPIME 2 GM in SODIUM CHL 0.9% 50 ML IV SCH ×2 (02:33→16:53)
[2021-06-19 05:04] VITALS: BP 137/72
[2021-06-19] MEDS: LEVOTHYROXINE SODIUM 25 MCG TAB PO SCH (05:54)
[2021-06-19] MEDS: metroNIDAZOLE 500 MG TAB PO SCH ×3 (05:54→21:45)
[2021-06-19 09:36] VITALS: BP 135/76
[2021-06-19] MEDS: THIAMINE HCL 100 MG TAB PO SCH (09:53)
[2021-06-19] MEDS: DOCUSATE SOD 100 MG CAP PO SCH ×2 (09:53→21:45)
[2021-06-19] MEDS: APIXABAN 5 MG TAB PO SCH ×2 (09:53→21:45)
[2021-06-19] MEDS: PANTOPRAZOLE 40 MG TAB PO SCH (09:54)
[2021-06-19] MEDS: predniSONE 20 MG TAB PO SCH (09:54)
[2021-06-19] MEDS: FUROSEMIDE 20 MG TAB PO SCH (09:54)
[2021-06-19] MEDS ORDERED: CAL025T GT (10:29)
[2021-06-19] MEDS ORDERED: APIX5TAB PO (10:29)
[2021-06-19 17:32] VITALS: BP 136/69
[2021-06-19] MEDS: ATORVASTATIN 20 MG TAB PO SCH (21:45)
[2021-06-19 22:00] VITALS: BP 130/70
[2021-06-20] MEDS: CEFEPIME 2 GM in SODIUM CHL 0.9% 50 ML IV SCH ×2 (02:37→16:45)
[2021-06-20 05:00] VITALS: BP 125/76
[2021-06-20] MEDS: metroNIDAZOLE 500 MG TAB PO SCH ×3 (05:47→21:49)
[2021-06-20] MEDS: LEVOTHYROXINE SODIUM 25 MCG TAB PO SCH (05:47)
[2021-06-20 09:00] VITALS: BP 142/69
[2021-06-20] MEDS: THIAMINE HCL 100 MG TAB PO SCH (10:12)
[2021-06-20] MEDS: predniSONE 20 MG TAB PO SCH (10:12)
[2021-06-20] MEDS: PANTOPRAZOLE 40 MG TAB PO SCH (10:13)
[2021-06-20] MEDS: METOPROLOL TARTRATE 25 MG TAB PO SCH (10:13)
[2021-06-20] MEDS: DOCUSATE SOD 100 MG CAP PO SCH ×2 (10:13→21:48)
[2021-06-20] MEDS: FUROSEMIDE 20 MG TAB PO SCH (10:13)
[2021-06-20] MEDS: APIXABAN 5 MG TAB PO SCH ×2 (10:56→21:48)
[2021-06-20 13:00] VITALS: BP 147/78
[2021-06-20 16:48] VITALS: BP 133/65
[2021-06-20] MEDS: ATORVASTATIN 20 MG TAB PO SCH (21:49)
[2021-06-20 22:00] VITALS: BP 152/73
[2021-06-21] MEDS: CEFEPIME 2 GM in SODIUM CHL 0.9% 50 ML IV SCH (02:38)
[2021-06-21 05:00] VITALS: BP 111/50
[2021-06-21 05:42] LABS: Basophils # (auto) 0 10 ^3/uL (0-0.2); Basophils % (auto) 0.2 % (0.0-2.0); Hemoglobin 11.8 g/dL (13.5-17.5); Monocytes # (auto) 1.2 10 ^3/uL (0-1.3)
[2021-06-21 05:45] LABS: Eosinophils # (auto) 0.2 10 ^3/uL (0-0.8); Eosinophils % (auto) 1.8 % (0.0-7.0); Hematocrit 34.4 % (41.0-53.0); Lymphocytes % (auto) 8.1 % (10.0-50.0); Mean Corpuscular Hgb Conc. 34.2 g/dL (32.0-36.0); Monocytes % (auto) 9.8 % (0.0-12.0); Neutrophils # (auto) 9.6 10 ^3/uL (1.6-8.6); Neutrophils % (auto) 80.1 % (37.0-80.0); Nucleated Red Blood Cells % 0.4 %; Red Blood Cells 3.19 10^6/uL (4.5-5.90); Red Cell Distribution Width 14.6 % (11.8-14.3); White Blood Cell 11.9 10^3/uL (4.4-10.8)
[2021-06-21] MEDS: LEVOTHYROXINE SODIUM 25 MCG TAB PO SCH (06:11)
[2021-06-21] MEDS: metroNIDAZOLE 500 MG TAB PO SCH ×2 (06:11→14:15)
[2021-06-21 09:00] VITALS: BP 161/70
[2021-06-21] MEDS: THIAMINE HCL 100 MG TAB PO SCH (09:06)
[2021-06-21] MEDS: DOCUSATE SOD 100 MG CAP PO SCH (09:06)
[2021-06-21] MEDS: predniSONE 20 MG TAB PO SCH (09:06)
[2021-06-21] MEDS: FUROSEMIDE 20 MG TAB PO SCH (09:08)
[2021-06-21] MEDS: APIXABAN 5 MG TAB PO SCH (09:08)
[2021-06-21] MEDS: METOPROLOL TARTRATE 25 MG TAB PO SCH (09:09)
[2021-06-21] MEDS: PANTOPRAZOLE 40 MG TAB PO SCH (09:09)
[2021-06-21 12:13] VITALS: BP 132/80
[2021-06-21 13:00] VITALS: BP 143/63
[2021-06-21 14:00] VITALS: BP 143/63
== END 2021-06-21 17:17 | disposition home health service (06) | DRG 190 ==
LOC: ER 05:49 → EDBD 05:49 → EDSEX 05:49 → TELE 13:22 → TELE-EAST 15:04
PROVIDERS: ADMIT Internal Medicine; ATTEND Family Medicine
DX: I21.4 Non-ST elevation (NSTEMI) myocardial infarction (principal); J96.21 Acute and chronic respiratory failure with hypoxia; G93.41 Metabolic encephalopathy; I50.43 Acute on chronic combined systolic (congestive) and diastolic (congestive) heart failure; D68.59 Other primary thrombophilia; E44.0 Moderate protein-calorie malnutrition; D69.6 Thrombocytopenia, unspecified; I48.20 Chronic atrial fibrillation, unspecified; E86.1 Hypovolemia; J44.1 Chronic obstructive pulmonary disease with (acute) exacerbation; J67.9 Hypersensitivity pneumonitis due to unspecified organic dust; K59.00 Constipation, unspecified; R10.31 Right lower quadrant pain; Z68.21 Body mass index [BMI] 21.0-21.9, adult; E05.90 Thyrotoxicosis, unspecified without thyrotoxic crisis or storm; I35.0 Nonrheumatic aortic (valve) stenosis; E11.21 Type 2 diabetes mellitus with diabetic nephropathy; E11.40 Type 2 diabetes mellitus with diabetic neuropathy, unspecified; E78.5 Hyperlipidemia, unspecified; I11.0 Hypertensive heart disease with heart failure; J84.112 Idiopathic pulmonary fibrosis; Z20.822 Contact with and (suspected) exposure to COVID-19; Z79.01 Long term (current) use of anticoagulants; Z99.81 Dependence on supplemental oxygen; Z90.49 Acquired absence of other specified parts of digestive tract; Z86.711 Personal history of pulmonary embolism; Z79.899 Other long term (current) drug therapy
CPT/HCPCS: 36415; 70450; 71045; 71260; 74176; 74177; 80053; 80307; 80320; 81001; 82140; 82565; 82607; 82746; 83605; 83615; 83735; 83880; 84443; 84484; 85007; 85025; 85027; 85362; 85384; 85610; 85730; 86704; 86706; 86803; 87040; 87081; 87340; 93005; 97163; G0378

== ENCOUNTER 2021-07-15 08:31 | Inpatient (IN) | payer MEDICARE, MEDICAID ==
[~2021-07-15] VITALS: Ht 162.6 cm; Wt 47.1 kg
[~2021-07-15 08:31] MED LIST changes: -ALBUAER3 IN
[2021-07-15 09:33] LABS: INR 1.13 (0.9-1.15); Partial Thromboplastin Time 29.7 sec (23.6-33.0)
[2021-07-15 09:47] LABS: White Blood Cell 5.3 10^3/uL (4.4-10.8)
[2021-07-15 09:49] LABS: Hematocrit 37.4 % (41.0-53.0); Hemoglobin 12.8 g/dL (13.5-17.5); Mean Corpuscular Hgb Conc. 34.1 g/dL (32.0-36.0); Mean Corpuscular Volume 111.3 fL (80.0-100.0); Red Blood Cells 3.36 10^6/uL (4.5-5.90); Red Cell Distribution Width 17.9 % (11.8-14.3)
[2021-07-15 10:04] LABS: Albumin 2.7 g/dL (3.4-5.0); BUN/Creatinine Ratio 25.9; Calcium 8.4 mg/dL (8.5-10.1); Potassium 3.2 mmol/L (3.5-5.1)
[2021-07-15 10:09] LABS: Bilirubin, Total 0.8 mg/dL (0.2-1.0); Total Protein 6.5 g/dL (6.4-8.2)
[2021-07-15 10:33] LABS: Basophils % (manual) 0 (0.0-2.0); Blast Cells 0; Metamyelocytes % 0; Myelocytes % 0; Promyelocytes % 0; Reactive Lymphocytes 0
[2021-07-15 10:35] LABS: Band Neutrophils % (manual) 18; Eosinophils % (manual) 6 (0-7); Lymphocytes % (manual) 14 (10.0-50.0); Monocytes % (manual) 6 (0-12)
[2021-07-15 11:26] LABS: Urine Bacteria NONE SEEN /hpf (None Seen); Urine Blood Negative /uL (Negative); Urine Specific Gravity 1.018 (1.001-1.035); Urine WBC 1 /hpf (0 - 3)
[2021-07-15] MEDS ORDERED: IOHEXOL 350 MG/ML 100ML IJ ONE (11:45)
[2021-07-15] MEDS ORDERED: NITROGLYCERIN 0.4 MG SL TAB SL PRN (12:00)
[2021-07-15] MEDS ORDERED: MORPHINE SULFATE INJECTION 2 MG/ML SYRG IV PRN ×2 (12:00→12:30)
[2021-07-15] MEDS ORDERED: POTASSIUM CHL 20 Meq TABLET PO ONE (12:15)
[2021-07-15] MEDS ORDERED: FOLIC ACID 1 MG TAB PO ONE (12:30)
[2021-07-15] MEDS ORDERED: IPRATROPIUM BROM 0.5 MG/2.5ML INH SOL NEB ONE (12:30)
[2021-07-15] MEDS ORDERED: FAMOTIDINE (10MG/ML) 2ML VL IV ONE (12:30)
[2021-07-15] MEDS ORDERED: DOCUSATE SOD 100 MG CAP PO PRN (12:30)
[2021-07-15] MEDS ORDERED: methylPREDNISolone SOD SUCC 125 MG/2 ML VL IV ONE (12:30)
[2021-07-15] MEDS ORDERED: ALBUTEROL SULF 2.5 MG/0.5ML(0.5%) NEB SOLN NEB ONE (12:30)
[2021-07-15] MEDS ORDERED: LACTULOSE 20Gm/30ML SOLN PO PRN (12:30)
[2021-07-15] MEDS ORDERED: BUDESONIDE (INHALATION) 0.5 MG/2 ML NEB NEB ONE (12:30)
[2021-07-15] MEDS ORDERED: HYDROcodone-ACET 5/325MG TAB PO ONE (12:30)
[2021-07-15] MEDS ORDERED: MONTELUKAST SODIUM 10 MG TAB PO ONE (12:30)
[2021-07-15] MEDS ORDERED: hydrALAZINE HCL 20 MG/ML VL IV PRN (12:30)
[2021-07-15] MEDS ORDERED: LORazepam 0.5 MG TAB PO PRN (12:30)
[2021-07-15] MEDS ORDERED: MAGNESIUM SULFATE 1GM/100ML 100 ML IV ONE (12:30)
[2021-07-15] MEDS ORDERED: HYDROcodone-ACET 5/325MG TAB PO PRN (12:30)
[2021-07-15] MEDS ORDERED: METOCLOPRAMIDE HCL 5MG/ml INJ 2ml VIAL IV PRN (12:30)
[2021-07-15] MEDS ORDERED: BUMETANIDE 2.5mg/10ml (0.25 mg/ml) INJ IV ONE (12:45)
[2021-07-15] MEDS ORDERED: ISOSORBIDE MONONITRATE ER 60 MG TAB PO ONE (12:45)
[2021-07-15] MEDS ORDERED: BENAZEPRIL HCL 10 MG TAB PO ONE (12:45)
[2021-07-15] MEDS ORDERED: METOPROLOL SUCCINATE XL 50 MG TAB PO ONE (12:45)
[2021-07-15] MEDS ORDERED: levoFLOXacin 750MG 150 ML IV ONE (12:45)
[2021-07-15 13:25] LABS: Magnesium 2.1 mg/dL (1.6-2.6); Phosphorus 2.9 mg/dL (2.5-4.90)
[2021-07-15 13:56] LABS: INR 1.17 (0.9-1.15); Partial Thromboplastin Time 31.9 sec (23.6-33.0)
[2021-07-15] MEDS: SODIUM CHLORIDE 0.9% 1,000 ML IV SCH (14:26)
[2021-07-15] MEDS: ACETYLCYSTEINE 10 %(100MG/ML) SOL 4ML NEB SCH ×2 (15:06→19:01)
[2021-07-15] MEDS: IPRATROPIUM BROM 0.5 MG/2.5ML INH SOL NEB SCH ×3 (15:06→23:01)
[2021-07-15 15:30] VITALS: BP 127/67
[2021-07-15] MEDS: BUMETANIDE 2.5mg/10ml (0.25 mg/ml) INJ IV SCH (18:23)
[2021-07-15] MEDS: BUDESONIDE (INHALATION) 0.5 MG/2 ML NEB NEB SCH (19:02)
[2021-07-15 21:45] VITALS: BP 101/59
[2021-07-15 22:00] VITALS: BP 90/51
[2021-07-15] MEDS: ISOSORBIDE MONONITRATE 20 MG TAB PO SCH (22:00)
[2021-07-15] MEDS: ALBUTEROL SULF 2.5 MG/0.5ML(0.5%) NEB SOLN NEB PRN (23:01)
[2021-07-15] MEDS: APIXABAN 5 MG TAB PO SCH (23:08)
[2021-07-15] MEDS: methylPREDNISolone SOD SUCC 40 MG/ML VL IV SCH (23:08)
[2021-07-15] MEDS: POTASSIUM CHL 20 Meq TABLET PO SCH (23:09)
[2021-07-15] MEDS: MONTELUKAST SODIUM 10 MG TAB PO SCH (23:09)
[2021-07-15] MEDS: ATORVASTATIN 20 MG TAB PO SCH (23:09)
[2021-07-15 23:33] VITALS: BP 108/71
[2021-07-16] MEDS: IPRATROPIUM BROM 0.5 MG/2.5ML INH SOL NEB SCH ×6 (02:00→23:00)
[2021-07-16 05:00] VITALS: BP 125/79
[2021-07-16] MEDS: methylPREDNISolone SOD SUCC 40 MG/ML VL IV SCH ×3 (06:07→21:09)
[2021-07-16] MEDS: BUMETANIDE 2.5mg/10ml (0.25 mg/ml) INJ IV SCH ×2 (06:08→17:56)
[2021-07-16] MEDS: BUDESONIDE (INHALATION) 0.5 MG/2 ML NEB NEB SCH (06:19)
[2021-07-16] MEDS: ACETYLCYSTEINE 10 %(100MG/ML) SOL 4ML NEB SCH ×3 (06:19→19:30)
[2021-07-16] MEDS: ALBUTEROL SULF 2.5 MG/0.5ML(0.5%) NEB SOLN NEB PRN ×5 (06:20→23:00)
[2021-07-16] MEDS: SODIUM CHLORIDE 0.9% 1,000 ML IV SCH (06:35)
[2021-07-16 06:38] LABS: Hematocrit 34.4 % (41.0-53.0); Mean Corpuscular Hemoglobin 38.4 pg (28.0-32.0); Mean Corpuscular Hgb Conc. 34.7 g/dL (32.0-36.0); Mean Corpuscular Volume 110.7 fL (80.0-100.0); Red Blood Cells 3.11 10^6/uL (4.5-5.90); Red Cell Distribution Width 18.1 % (11.8-14.3); White Blood Cell 3.4 10^3/uL (4.4-10.8)
[2021-07-16 06:39] LABS: INR 1.16 (0.9-1.15); Partial Thromboplastin Time 31.5 sec (23.6-33.0)
[2021-07-16] MEDS ORDERED: LEVOTHYROXINE SODIUM 25 MCG TAB PO SCH (07:00)
[2021-07-16 07:07] LABS: Basophils % (manual) 0 (0.0-2.0); Blast Cells 0; Eosinophils % (manual) 0 (0-7); Metamyelocytes % 0; Myelocytes % 0; Promyelocytes % 0; Reactive Lymphocytes 0
[2021-07-16 07:35] LABS: Albumin 2.5 g/dL (3.4-5.0); Bilirubin, Total 0.6 mg/dL (0.2-1.0); CRP High Sensitivity 4.75 mg/dL (< 0.3); Phosphorus 3.6 mg/dL (2.5-4.90); Total Protein 6.4 g/dL (6.4-8.2)
[2021-07-16 08:00] VITALS: BP 131/65
[2021-07-16 08:05] LABS: BUN/Creatinine Ratio 19.4; Magnesium 2.3 mg/dL (1.6-2.6); Potassium 4.3 mmol/L (3.5-5.1)
[2021-07-16 08:06] LABS: Calcium 8.4 mg/dL (8.5-10.1)
[2021-07-16 08:10] LABS: Band Neutrophils % (manual) 7; Lymphocytes % (manual) 23 (10.0-50.0); Monocytes % (manual) 2 (0-12)
[2021-07-16 08:34] VITALS: BP 131/65
[2021-07-16] MEDS ORDERED: FOLIC ACID 1 MG TAB PO SCH (10:00)
[2021-07-16] MEDS: FAMOTIDINE (10MG/ML) 2ML VL IV SCH (10:47)
[2021-07-16] MEDS: ASPirin 81 mg TAB PO SCH (10:48)
[2021-07-16] MEDS: CYANOCOBALAMIN 500 MCG TAB PO SCH (10:48)
[2021-07-16] MEDS: APIXABAN 5 MG TAB PO SCH ×2 (10:49→21:10)
[2021-07-16] MEDS: POTASSIUM CHL 20 Meq TABLET PO SCH (10:49)
[2021-07-16] MEDS: CHOLECALCIFEROL (VITD3) 2,000 UNIT CAP/TAB PO SCH (10:49)
[2021-07-16] MEDS: BENAZEPRIL HCL 10 MG TAB PO SCH (10:54)
[2021-07-16] MEDS: ISOSORBIDE MONONITRATE 20 MG TAB PO SCH ×2 (10:54→22:54)
[2021-07-16] MEDS: METOPROLOL SUCCINATE XL 50 MG TAB PO SCH (10:55)
[2021-07-16 12:45] VITALS: BP 110/56
[2021-07-16 17:00] VITALS: BP 109/71
[2021-07-16] MEDS: ATORVASTATIN 20 MG TAB PO SCH (21:10)
[2021-07-16] MEDS: MONTELUKAST SODIUM 10 MG TAB PO SCH (21:10)
[2021-07-16 22:00] VITALS: BP 116/66
[2021-07-17] MEDS: IPRATROPIUM BROM 0.5 MG/2.5ML INH SOL NEB SCH ×4 (02:00→14:38)
[2021-07-17 04:36] VITALS: BP 104/53
[2021-07-17] MEDS: BUMETANIDE 2.5mg/10ml (0.25 mg/ml) INJ IV SCH (06:00)
[2021-07-17] MEDS: methylPREDNISolone SOD SUCC 40 MG/ML VL IV SCH ×2 (06:08→15:34)
[2021-07-17] MEDS: ACETYLCYSTEINE 10 %(100MG/ML) SOL 4ML NEB SCH (06:30)
[2021-07-17] MEDS: ALBUTEROL SULF 2.5 MG/0.5ML(0.5%) NEB SOLN NEB PRN ×3 (06:30→14:38)
[2021-07-17] MEDS ORDERED: LEVOTHYROXINE SODIUM 50 MCG TAB PO SCH (07:00)
[2021-07-17 09:00] VITALS: BP 110/66
[2021-07-17] MEDS ORDERED: levoFLOXacin 750MG 150 ML IV SCH (10:00)
[2021-07-17] MEDS: CYANOCOBALAMIN 500 MCG TAB PO SCH (10:09)
[2021-07-17] MEDS: CHOLECALCIFEROL (VITD3) 2,000 UNIT CAP/TAB PO SCH (10:09)
[2021-07-17] MEDS: ISOSORBIDE MONONITRATE 20 MG TAB PO SCH (10:12)
[2021-07-17] MEDS: METOPROLOL SUCCINATE XL 50 MG TAB PO SCH (10:13)
[2021-07-17] MEDS: BENAZEPRIL HCL 10 MG TAB PO SCH (10:13)
[2021-07-17] MEDS: ASPirin 81 mg TAB PO SCH (10:13)
[2021-07-17] MEDS: FAMOTIDINE (10MG/ML) 2ML VL IV SCH (10:14)
[2021-07-17] MEDS: APIXABAN 5 MG TAB PO SCH (10:14)
[2021-07-17 13:00] VITALS: BP 116/66
[2021-07-17] MEDS ORDERED: ALB5IS NEB (13:01)
[2021-07-17] MEDS ORDERED: PRED10TA PO (13:01)
[2021-07-17] MEDS ORDERED: LEVO75TA6 PO (13:01)
[2021-07-17] MEDS ORDERED: ALBUAER3 IN (13:01)
[2021-07-17] MEDS ORDERED: PRE5T PO (13:01)
[2021-07-17] MEDS ORDERED: FURO1TAB33 PO (13:01)
[2021-07-17] MEDS ORDERED: PRED20TA2 PO (13:01)
[2021-07-17 13:49] VITALS: BP 116/66
[2021-07-19] MEDS ORDERED: FAMOTIDINE (10MG/ML) 2ML VL IV SCH (10:00)
== END 2021-07-17 17:14 | disposition home health service (06) | DRG 142 ==
LOC: ER 08:31 → EDBD 08:31 → TELE 11:51 → TELE-WESTW 21:45
PROVIDERS: ADMIT Hospitalist; ATTEND Internal Medicine
DX: J84.9 Interstitial pulmonary disease, unspecified (principal); J96.20 Acute and chronic respiratory failure, unspecified whether with hypoxia or hypercapnia; I50.43 Acute on chronic combined systolic (congestive) and diastolic (congestive) heart failure; J44.0 Chronic obstructive pulmonary disease with (acute) lower respiratory infection; I27.20 Pulmonary hypertension, unspecified; D53.9 Nutritional anemia, unspecified; E11.9 Type 2 diabetes mellitus without complications; R62.7 Adult failure to thrive; I11.0 Hypertensive heart disease with heart failure; J20.9 Acute bronchitis, unspecified; Z99.81 Dependence on supplemental oxygen; I16.9 Hypertensive crisis, unspecified; I25.5 Ischemic cardiomyopathy; Z20.822 Contact with and (suspected) exposure to COVID-19; I48.0 Paroxysmal atrial fibrillation; I35.0 Nonrheumatic aortic (valve) stenosis; I25.10 Atherosclerotic heart disease of native coronary artery without angina pectoris; K21.9 Gastro-esophageal reflux disease without esophagitis; E03.9 Hypothyroidism, unspecified; E78.5 Hyperlipidemia, unspecified; Z66 Do not resuscitate; Z79.01 Long term (current) use of anticoagulants; Z79.899 Other long term (current) drug therapy; Z87.891 Personal history of nicotine dependence; Z79.84 Long term (current) use of oral hypoglycemic drugs; J44.1 Chronic obstructive pulmonary disease with (acute) exacerbation
CPT/HCPCS: 36415; 71045; 71275; 74176; 80053; 80061; 81001; 82306; 82550; 82728; 83036; 83615; 83690; 83735; 83880; 84100; 84439; 84443; 84484; 85007; 85027; 85379; 85610; 85652; 85730; 86141; 87040; 87086; 93005; 94640; 96365; 96375; G0378; J1956; J3490